=== PATIENT | female | born 1980 | race Caucasian/White ===

== ENCOUNTER → 2018-01-24 | Outpatient (CLI) | payer OTHER ==
[~2018-01-24] MED LIST: ALBU90OI6 INH; CEPH500 PO; ESTR2 PO; IBUP800 PO; OXYACE5T PO; Oxycodone-Apap1 EAC3 PO; PROC10 PO; PROM25 PO; Percocet 5-3251 EACH PO; Prednisone1 MG PO; Pyridium200 MG PO; ZYRTEC10 M2
[2018-01-25 09:24] LABS: Candida species (DNA Probe) Negative (NEGATIVE); G. vaginalis (DNA Probe) Negative (NEGATIVE); T. vaginalis (DNA Probe) Negative (NEGATIVE)
== END ==
LOC: LAB 16:05 → LAB SHORT 16:05
PROVIDERS: Registered Nurse
DX: N89.8 Other specified noninflammatory disorders of vagina (principal)
CPT/HCPCS: 87480; 87510; 87660

== ENCOUNTER → 2018-05-28 | Outpatient (CLI) | payer OTHER ==
[2018-05-30 16:09] LABS: HPV 16 Negative (Negative); HPV 18 Negative (Negative); HPV OTHER HR TYPES Positive (Negative)
== END ==
LOC: LAB SHORT 14:19 → LAB SRC 14:19 → LAB SHORT 05-29 08:31
PROVIDERS: Registered Nurse
DX: Z12.4 Encounter for screening for malignant neoplasm of cervix (principal)
CPT/HCPCS: 87624; 87625; G0123

== ENCOUNTER 2018-07-10 16:12 | Emergency (ER) | payer OTHER ==
[~2018-07-10] VITALS: Ht 157.5 cm; Wt 64.0 kg
== END 2018-07-10 16:32 | disposition home or self-care (01) ==
LOC: ER 16:12
DX: R55 Syncope and collapse (principal)
CPT/HCPCS: 99283

== ENCOUNTER → 2018-07-10 | Outpatient (CLI) | payer OTHER ==
[2018-07-11 10:15] LABS: Antinuclear Antibody Screen Negative (Negative)
== END | disposition home or self-care (01) ==
LOC: LAB SHORT 18:29 → LAB 18:29
PROVIDERS: Internal Medicine Hematology & Oncology
DX: D69.6 Thrombocytopenia, unspecified (principal); R53.83 Other fatigue
CPT/HCPCS: 86038